=== PATIENT | female | born 1960 | race Caucasian/White ===

== ENCOUNTER → 2020-01-24 13:40 | Outpatient (CLI) | payer OTHER, SELFPAY ==
[2018-07-04 09:38] VITALS: BMI 20.2
[2020-02-06 14:21] LABS: HPV APTIMA, High Risk NEGATIVE
== END ==
PROVIDERS: PCP Family Medicine; Visit Provider Obstetrics & Gynecology
DX: Z12.4 Encounter for screening for malignant neoplasm of cervix (principal)
CPT/HCPCS: 87624; 88175; G0145